=== PATIENT | female | born 1985 | race Caucasian/White ===

== ENCOUNTER → 2017-01-22 | Emergency (ER) | payer OTHER ==
[~2017-01-22] MED LIST: ACETAMINOPHEN 500 MG TABLET (FP) ONE; ACETAMINOPHEN 500 MG TABLET (FP) PO ONE
[2017-01-22 11:26] VITALS: BMI 42.0
--- NOTE | 2017-01-22 12:43 | PDOC ---
History of Present Illness - General Chief Complaint: Pain Stated Complaint: LT LEG PAIN (27 WKS ) Time Seen by Provider: 01/22/17 12:18 History Source: Patient Exam Limitations: No Limitations - History of Present Illness Initial Comments: 01/22/17 17:40 My chief complaint: Left-sided lower back pain with radiation down her left leg getting worse History of present illness: Patient is a 31-year-old female 27 weeks here today complaining of worsening left-sided back pain with radiation down left leg over the last 3 weeks. Patient reports at times she feels as if her left leg belgica. Patient has not taken anything for pain. Patient denies any numbness of her leg or any saddle anesthesia or incontinency. She reports having lower back issues for the last 3 years in the past however has never been this bad. Patient has an estimated due date of 04/09/2017 and her last menstrual cycle was 06/12/2016. Patient is a patient of Dr. Zamudio. Pt. denies any vaginal discharge or urinary symptoms. Occurred: reports: other (3 weeks ) Severity: reports: severe Pain Location: reports: back, upper extremity (left buttock radiates down left posterior legs ) Method of Injury: Yes: unknown Modifying Factors: improves with: None Loss of Consciousness: no loss of consciousness Associated Symptoms (Fall): denies symptoms Past History - Past Medical History Allergies/Adverse Reactions: Allergies Allergy/AdvReac Type Severity Reaction Status Date / Time No Known Allergies Allergy Verified 01/22/17 11:27 Home Medications: Ambulatory Orders Vit #108/Iron/FA [ One Tablet] 1 each PO DAILY 12/16/15 Acetaminophen 1,000 mg PO Q8H PRN #30 capsule MDD 6 01/22/17 Asthma: No Cancer: No Cardiac Disorders: No Diabetes: No HTN: No Seizures: No Thyroid Disease: No - Surgical History Cholecystectomy: Yes - Suicide/Smoking/Psychosocial Hx Smoking History: Never smoked Have you smoked in the past 12 months: No Hx Alcohol Use: No Drug/Substance Use Hx: No Hx Substance Use Treatment: No Review of Systems - Review of Systems Able to Perform ROS?: Yes Constitutional: No: Symptoms Reported HEENTM: No: Symptoms Reported Respiratory: No: Symptoms reported Cardiac (ROS): No: Symptoms Reported ABD/GI: No: Symptoms Reported : No: Symptoms Reported Musculoskeletal: Yes: Back Pain (right buttock radiates down left posterior leg ) Integumentary: No: Symptoms Reported Neurological: No: Symptoms reported *Physical Exam - Vital Signs Last Vital Signs Temp Pulse Resp BP Pulse Ox 98.6 F 122 H 20 130/72 97 01/22/17 11:23 01/22/17 11:23 01/22/17 11:23 01/22/17 11:23 01/22/17 11:23 - Physical Exam General Appearance: Yes: Appropriately Dressed Respiratory/Chest: positive: Lungs Clear, Normal Breath Sounds. negative: Chest Tender, Respiratory Distress Cardiovascular: positive: Regular Rhythm, Regular Rate, S1, S2 Vascular Pulses: Doralis-Pedis (L): 4+ Musculoskeletal: positive: Normal Inspection, Decreased Range of Motion (at waist with flexion ). negative: CVA Tenderness, CVA Tenderness (R), CVA Tenderness (L), Vertebral Tenderness Extremity: positive: Normal Capillary Refill, Normal Inspection, Normal Range of Motion Integumentary: positive: Normal Color Neurologic: positive: Normal Response, Motor Strength 5/5, Respond to painful stimul (b/l legs ), Responsive, Other (left leg + SLR at 40 degrees ). negative : Numbness, Sensory Deficit Deep Tendon Reflexes: Knee (L): 4+, Knee (R): 4+ Medical Decision Making - Medical Decision Making 01/22/17 17:43 Patient is a 31-year-old female 27 weeks here today complaining of worsening left-sided back pain with radiation down left leg over the last 3 weeks. Patient reports at times she feels as if her left leg belgica. Patient has not taken anything for pain. Patient denies any numbness of her leg or any saddle anesthesia or incontinency. She reports having lower back issues for the last 3 years in the past however has never been this bad. Patient has an estimated due date of 04/09/2017 and her last menstrual cycle was 06/12/2016. Patient is a patient of Dr. Zamudio. Pt. denies any vaginal discharge or urinary symptoms. LEFT LOWER BACK PAIN WITH RADICULOPATHY LEFT LEG PLAN: ACETAMINOPHEN 1000 MG PO NOW THAN EVERY 8 HRS PRN PAIN FOLLOW UP WITH ORTHOPEDIST FOR FURTHER EVAL PT. TO GO TO L & D FOR FURTHER EVAL *DC/Admit/Observation/Transfer Diagnosis at time of Disposition: Lumbar back pain with radiculopathy affecting left lower extremity - Discharge Dispostion Disposition: HOME Condition at time of disposition: Stable - Prescriptions Prescriptions: Acetaminophen 1,000 mg PO Q8H PRN #30 capsule MDD 6 PRN Reason: Pain Level 6-10 - Referrals Referrals: Litzy Santillan MD [Primary Care Provider] - Crispin Mondragon MD [Staff Physician] - Jared Garcia MD [Staff Physician] - - Patient Instructions Printed Discharge Instructions: Sciatica (Alternative Therapy), DI for Sciatica Additional Instructions: Avoid any strenuous activities or exercise You must follow up with orthopedist tomorrow for further evaluation Drink at least 10 glasses of water a day to stay well hydrated. Return to the Labor and Delivery unit if the baby is not moving, your water breaks, you have vaginal bleeding or contractions unrelieved with rest and hydration.
[2017-01-22 14:46] VITALS: BP 110/61; PULSE 98; TEMP 98.4
== END | disposition home or self-care (01) ==
LOC: JERFT 11:21
DX: O26.892 Other specified pregnancy related conditions, second trimester (principal)
CPT/HCPCS: 99281-25

== ENCOUNTER 2017-04-08 06:10 | Inpatient (IN) | payer OTHER ==
[~2017-04-08 06:10] MED LIST changes: -ACETAMINOPHEN 500 MG TABLET (FP) ONE; -ACETAMINOPHEN 500 MG TABLET (FP) PO ONE; +CITRIC ACID/SODIUM CITRATE 30 ML UNIT-DOSE CUP PO ONE; +ELECTROLYTE-148 SOLN 500 ML IV ONE
[2017-04-08] MEDS ORDERED: ELECTROLYTE-148 SOLN 500 ML IV ONE (06:40)
[2017-04-08 07:02] VITALS: BMI 42.0
--- NOTE | 2017-04-08 08:15 | HP ---
Past Medical History - Admission Chief Complaint: Elective History of Present Illness: 31 yo @ 39 weeks gestation with previous is pre op for repeat C- Section. She c/o leaking fluid but no contractions pain. History Source: Patient Limitations to Obtaining History: No Limitations - Past Medical History ...: 5 ...Para: 3 ...Term: 3 ...: 0 ...Spon : 1 ...Induced : 0 ...EDC by Sono: 04/15/17 - Past Surgical History Past Surgical History: Yes: Cholecystectomy, Hx Myomectomy: No Hx Transabdominal Cerclage: No - Smoking History Smoking history: Never smoked Have you smoked in the past 12 months: No - Alcohol/Substance Use Hx Alcohol Use: No History of Substance Use: reports: None - Social History Usual Living Arrangement: Yes: With Significant Other History of Recent Travel: No Home Medications - Allergies Allergies/Adverse Reactions: Allergies Allergy/AdvReac Type Severity Reaction Status Date / Time No Known Allergies Allergy Verified 04/08/17 07:03 - Home Medications Home Medications: Ambulatory Orders Vit Calc,Iron,Folic [ Vitamins] 1 each PO DAILY 04/08/17 Family Disease History - Family Disease History Family History: Unremarkable Review of Systems - Review of Systems Constitutional: reports: No Symptoms Eyes: reports: No Symptoms HENT: reports: No Symptoms Neck: reports: No Symptoms Cardiovascular: reports: No Symptoms Respiratory: reports: No Symptoms Gastrointestinal: reports: No Symptoms Genitourinary: reports: Other (Leakage of fluid) Breasts: reports: No Symptoms Reported Musculoskeletal: reports: No Symptoms Integumentary: reports: No Symptoms Neurological: reports: No Symptoms Endocrine: reports: No Symptoms Hematology/Lymphatic: reports: No Symptoms Psychiatric: reports: No Symptoms Pain Intensity: 2 Physical Exam - Maternity Constitutional: Yes: Well Nourished Eyes: Yes: Conjunctiva Clear HENT: Yes: Atraumatic Neck: Yes: Supple Cardiovascular: Yes: Regular Rate and Rhythm Lungs: Clear to auscultation - Abdominal Exam/OB Number of Fetuses: Single Presentation: Vertex Contractions: No - Physical Exam ...Motor Strength: WNL Psychiatric: Yes: Alert, Oriented Problem List - Problems (1) Previous section complicating , antepartum condition or complication Code(s): O34.219 - MATERNAL CARE FOR UNSP TYPE SCAR FROM PREVIOUS DEL Assessment/Plan Previous Pre op for repeat Consent signed Anesthesia to see patient
[2017-04-08] MEDS ORDERED: METHYLERGONOVINE MALEATE 0.2 MG/1 ML AMP IM PRN (10:09)
--- NOTE | 2017-04-08 10:09 | OP ---
Operative Note - Note: Operative Date: 04/08/17 Pre-Operative Diagnosis: Elective Operation: Repeat Low Transverse Findings: Baby girl in ROT position Post-Operative Diagnosis: Same as Pre-op Surgeon: Maribeth Harris Manager Spring: Livan Vázquez Anesthesia: Spinal Specimens Removed: Placenta Estimated Blood Loss (mls): 500
[2017-04-08] MEDS ORDERED: ONDANSETRON 4 MG/2 ML VIAL IVPUSH PRN (10:27)
[2017-04-08] MEDS: OXYTOCIN 20 UNITS in 0.9% NS 20 UNIT/1,000 ML INFUS.BAG IV SCH ×2 (10:40→19:57)
--- NOTE | 2017-04-08 12:14 | SURG ---
Surgery Jewelry Coater Note Jewelry Coater: Livan Vázquez PA-C Date of Service: 04/08/17 Diagnosis: Elective Procedure: Repeat Low Transverse I was present for the entirety of the operative procedure. For further detail, please refer to operative report. Visit type - Case Type Case Type: Scheduled Admission - New patient This patient is new to me today: Yes Date on this admission: 04/08/17
[2017-04-08] MEDS: IBUPROFEN 800 MG/8 ML IJ IVPB PRN (17:50)
[2017-04-08] MEDS: FERROUS SO4 325 MG TABLET (FP) PO SCH (22:09)
[2017-04-09] MEDS: IBUPROFEN 800 MG/8 ML IJ IVPB PRN (00:53)
--- NOTE | 2017-04-09 07:18 | PN ---
Progress Note (SOAP) - Current Medications Current Medications: Active Medications Acetaminophen (Tylenol -) 650 mg PO Q4H PRN PRN Reason: FEVER OR PAIN Bisacodyl (Dulcolax Suppository -) 10 mg RC PRN PRN PRN Reason: CONSTIPATION Diphenhydramine HCl (Benadryl Injection -) 25 mg IVPUSH Q4H PRN PRN Reason: Pruritis Last Admin: 04/09/17 00:53 Dose: 25 mg Ferrous Sulfate (Feosol -) 325 mg PO BID [facility] Last Admin: 04/08/17 22:09 Dose: Not Given Oxytocin/Sodium Chloride (Normal Saline+20 Units Oxytocin -) 20 unit in 1,000 mls @ 125 mls/hr IV ASDIR [facility] Last Admin: 04/08/17 19:57 Dose: 125 mls/hr Ibuprofen (Motrin -) 600 mg PO Q4H PRN PRN Reason: PAIN Ibuprofen (Caldolor Injection -) 800 mg IVPB Q8H PRN PRN Reason: PAIN OR FEVER Last Admin: 04/09/17 00:53 Dose: 800 mg Methylergonovine Maleate (Methergine Injection -) 0.2 mg IM Q4H PRN PRN Reason: Excessive Bleeding (L&D) Ondansetron HCl (Zofran Injection) 4 mg IVPUSH Q4H PRN PRN Reason: NAUSEA Oxycodone HCl (Roxicodone -) 5 mg PO Q4H PRN PRN Reason: PAIN LEVEL 1-5 Multivit/Folic Acid/Iron ( Vitamins (Sjr) -) 1 tab PO DAILY [facility] Simethicone (Mylicon -) 80 mg PO Q4H PRN PRN Reason: GAS - Objective Vital Signs: Vital Signs Temperature 98.7 F 04/09/17 06:00 Pulse Rate 89 04/09/17 06:00 Respiratory Rate 18 04/09/17 06:00 Blood Pressure 108/66 04/09/17 06:00 O2 Sat by Pulse Oximetry (%) 100 04/08/17 11:20 Constitutional: Yes: Well Nourished, No Distress HENT: Yes: WNL Neck: Yes: WNL Cardiovascular: Yes: WNL Respiratory: Yes: WNL, Regular, CTA Bilaterally Gastrointestinal: Yes: WNL ...Rectal Exam: Yes: WNL ....Post : Yes: Uterus firm, Uterus non-tender Breast(s): Yes: WNL Musculoskeletal: Yes: WNL Extremities: Yes: WNL Wound/Incision: Yes: Clean/Dry, Dressing Dry and Intact Neurological: Yes: WNL, Alert, Oriented Assessment/Plan SP POD 1 Section Plan OOB Percocet
[2017-04-09 08:14] LABS: BASOPHIL 0.3 % (0-2.0); EOSINOPHIL 0.9 % (0-4.5); MCH 25.2 pg (25.7-33.7); MCHC 31.7 g/dl (32.0-36.0); MEAN CELL VOLUME 79.4 fl (80-96); PLATELET COUNT 177 K/MM3 (134-434); RDW 16.3 % (11.6-15.6); WHITE BLOOD COUNT 11.1 K/mm3 (4.0-10.0)
[2017-04-09] MEDS: oxyCODONE HCL 5 MG TABLET PO PRN ×4 (09:06→22:59)
[2017-04-09] MEDS: ACETAMINOPHEN 325 MG TABLET (FP) PO PRN ×4 (09:08→22:58)
[2017-04-09] MEDS: PRENATAL VITAMINS W/ FOLIC ACID TABLET (FP) PO SCH (09:09)
[2017-04-09] MEDS: FERROUS SO4 325 MG TABLET (FP) PO SCH ×2 (09:09→21:21)
[2017-04-09] MEDS: SIMETHICONE 80 MG TAB.CHEW (FP) PO PRN ×4 (09:09→22:58)
[2017-04-09] MEDS ORDERED: BISACODYL 10 MG SUPP.RECT RC PRN (10:09)
--- NOTE | 2017-04-09 12:25 | PN ---
Progress Note, Physician Chief Complaint: Pt. ambulating and voiding, pain controlled, no anesthesia complaints. - Current Medication List Current Medications: Active Medications Acetaminophen (Tylenol -) 650 mg PO Q4H PRN PRN Reason: FEVER OR PAIN Last Admin: 04/09/17 09:08 Dose: 650 mg Bisacodyl (Dulcolax Suppository -) 10 mg RC PRN PRN PRN Reason: CONSTIPATION Diphenhydramine HCl (Benadryl Injection -) 25 mg IVPUSH Q4H PRN PRN Reason: Pruritis Last Admin: 04/09/17 00:53 Dose: 25 mg Ferrous Sulfate (Feosol -) 325 mg PO BID [facility] Last Admin: 04/09/17 09:09 Dose: 325 mg Oxytocin/Sodium Chloride (Normal Saline+20 Units Oxytocin -) 20 unit in 1,000 mls @ 125 mls/hr IV ASDIR [facility] Last Admin: 04/08/17 19:57 Dose: 125 mls/hr Ibuprofen (Motrin -) 600 mg PO Q4H PRN PRN Reason: PAIN Ibuprofen (Caldolor Injection -) 800 mg IVPB Q8H PRN PRN Reason: PAIN OR FEVER Last Admin: 04/09/17 00:53 Dose: 800 mg Methylergonovine Maleate (Methergine Injection -) 0.2 mg IM Q4H PRN PRN Reason: Excessive Bleeding (L&D) Ondansetron HCl (Zofran Injection) 4 mg IVPUSH Q4H PRN PRN Reason: NAUSEA Oxycodone HCl (Roxicodone -) 5 mg PO Q4H PRN PRN Reason: PAIN LEVEL 1-5 Last Admin: 04/09/17 09:06 Dose: 5 mg Multivit/Folic Acid/Iron ( Vitamins (Sjr) -) 1 tab PO DAILY [facility] Last Admin: 04/09/17 09:09 Dose: 1 tab Simethicone (Mylicon -) 80 mg PO Q4H PRN PRN Reason: GAS Last Admin: 04/09/17 09:09 Dose: 80 mg - Objective Vital Signs: Vital Signs Temperature 98.8 F 04/09/17 07:30 Pulse Rate 85 04/09/17 07:30 Respiratory Rate 18 04/09/17 08:00 Blood Pressure 106/61 04/09/17 07:30 O2 Sat by Pulse Oximetry (%) 100 04/08/17 11:20 Constitutional: Yes: Well Nourished, No Distress, Calm Musculoskeletal: Yes: WNL Neurological: Yes: WNL, Alert, Oriented ...Motor Strength: WNL Labs: CBC, BMP 04/09/17 07:45 Assessment/Plan POD#1 s/p repeat under spinal with duramorph. Doing well. D/C from anesthesia care.
[2017-04-09] MEDS: IBUPROFEN 600 MG TABLET (FP) PO PRN (22:58)
[2017-04-10] MEDS: IBUPROFEN 600 MG TABLET (FP) PO PRN ×2 (06:44→21:48)
[2017-04-10] MEDS: oxyCODONE HCL 5 MG TABLET PO PRN ×4 (06:45→21:48)
[2017-04-10] MEDS: ACETAMINOPHEN 325 MG TABLET (FP) PO PRN ×3 (06:45→17:33)
[2017-04-10] MEDS: FERROUS SO4 325 MG TABLET (FP) PO SCH ×2 (09:12→21:48)
[2017-04-10] MEDS: PRENATAL VITAMINS W/ FOLIC ACID TABLET (FP) PO SCH (09:12)
--- NOTE | 2017-04-10 09:17 | OP ---
DATE OF OPERATION: 04/08/2017 PREOPERATIVE DIAGNOSIS: Previous section, at 39 weeks. POSTOPERATIVE DIAGNOSIS: Previous section, at 39 weeks. PROCEDURE: Repeat low transverse section. SURGEON: Maribeth Harris MD VOCAL ARTIST: OSMAR Jerry ANESTHESIA: Spinal. COMPLICATIONS: None. ESTIMATED BLOOD LOSS: 600 Ml DESCRIPTION OF PROCEDURE: Patient was taken to the operating room where spinal anesthesia was administered. Patient was then prepped and draped in proper sterile fashion. A Pfannenstiel skin incision was made and carried down to the underlying layer of fascia. The fascia was incised in the midline and extended laterally. The superior aspect of the fascial incision was then grasped with a Tam clamp, elevated, and the rectus muscle dissected off bluntly. Attention was then turned to the inferior aspect of the fascial incision, which in a similar fashion, was then grasped with a Tam clamp, elevated, and the rectus muscle was dissected off bluntly. The rectus muscle was in the midline. The peritoneum identified and entered sharply with the Metzenbaum scissors. The peritoneal incision was then extended superiorly and inferiorly with good visualization of the bladder. The vesicouterine peritoneum was then grasped with a pickup and entered sharply with the Metzenbaum scissors. This incision was extended laterally and a bladder flap created digitally. Then, the lower uterine segment was then incised using a 10 blade. This incision was extended laterally and the head delivered atraumatically. Nose and mouth were suctioned and the cord clamped and cut. The was handed to the waiting foundry engineer, and the placenta was removed manually. The uterus exteriorized and cleared of all clots and debris. Then, the uterine incision was repaired using 0 Biosyn in a running locked fashion. A second layer of the same suture was used as a means to provide excellent hemostasis. Then, the pelvis was then completely irrigated. The uterus was returned to the abdomen. Then, the peritoneum was closed using 2-0 Biosyn, the fascia was reapproximated using 0 Vicryl in a running fashion, and the skin was closed in a subcuticular fashion using 3-0 Vicryl. Patient tolerated the procedure well. Patient was then taken to PACU in stable condition. PATHOLOGY: Placenta. Ria COCHRAN/[id number]
--- NOTE | 2017-04-10 11:13 | PN ---
Post Progress Note - Subjective Subjective: Pt seen/evaluated and doing well. Pain controlled. Tolerating diet. Ambulating, voiding, passing flatus. No complaints. Type of Delivery: Repeat C/S Vital Signs: Vital Signs Temperature 97.5 F L 04/09/17 22:00 Pulse Rate 91 H 04/09/17 22:00 Respiratory Rate 18 04/09/17 22:00 Blood Pressure 125/60 04/09/17 22:00 O2 Sat by Pulse Oximetry (%) 100 04/08/17 11:20 Uterus: No: Fundus Firm Abdomen/GI: Yes: Abdomen soft, Passing flatus, Tolerating PO. No: Abdominal Distention, Tender Lochia: Yes: Rubra Lochia, amount: Small Extremities: Yes: Calves non-tender. No: Edema Perineum: Yes: Intact Activity: Ambulating - Labs Labs: CBC WBC 11.1 K/mm3 (4.0-10.0) H 04/09/17 07:45 RBC 3.71 M/mm3 (3.60-5.2) 04/09/17 07:45 Hgb 9.3 GM/dL (10.7-15.3) L D 04/09/17 07:45 Hct 29.5 % (32.4-45.2) L 04/09/17 07:45 MCV 79.4 fl (80-96) L 04/09/17 07:45 MCH 25.2 pg (25.7-33.7) L 04/09/17 07:45 MCHC 31.7 g/dl (32.0-36.0) L 04/09/17 07:45 RDW 16.3 % (11.6-15.6) H 04/09/17 07:45 Plt Count 177 K/MM3 (134-434) D 04/09/17 07:45 MPV 10.0 fl (7.5-11.1) 04/09/17 07:45 Neutrophils % 79.0 % (42.8-82.8) 04/09/17 07:45 Lymphocytes % 13.2 % (8-40) D 04/09/17 07:45 Monocytes % 6.6 % (3.8-10.2) 04/09/17 07:45 Eosinophils % 0.9 % (0-4.5) D 04/09/17 07:45 Basophils % 0.3 % (0-2.0) 04/09/17 07:45 Problem List - Problems (1) delivery delivered Code(s): O82 - ENCOUNTER FOR DELIVERY WITHOUT INDICATION (2) Anemia Code(s): D64.9 - ANEMIA, UNSPECIFIED Assessment/Plan 31 y/o POD#2 s/p repeat delivery - AFVSS - Hgb 9.3 - pt stable, asymptomatic, will continue vitamins - regular diet, PO pain meds, routine care - likely stable for discharge home tomorrow
[2017-04-10] MEDS: SIMETHICONE 80 MG TAB.CHEW (FP) PO PRN ×3 (13:26→21:48)
[2017-04-11] MEDS: oxyCODONE HCL 5 MG TABLET PO PRN ×2 (03:53→07:39)
[2017-04-11] MEDS: IBUPROFEN 600 MG TABLET (FP) PO PRN ×3 (03:53→16:05)
[2017-04-11] MEDS: SIMETHICONE 80 MG TAB.CHEW (FP) PO PRN ×3 (03:54→16:05)
[2017-04-11 09:06] LABS: BASOPHIL 0.6 % (0-2.0); EOSINOPHIL 2.9 % (0-4.5); MCH 25.6 pg (25.7-33.7); MCHC 32.3 g/dl (32.0-36.0); MEAN CELL VOLUME 79.2 fl (80-96); MEAN PLT VOLUME 9.9 fl (7.5-11.1); NEUTROPHILS 67.1 % (42.8-82.8); PLATELET COUNT 224 K/MM3 (134-434); RDW 16.7 % (11.6-15.6); WHITE BLOOD COUNT 8.7 K/mm3 (4.0-10.0)
--- NOTE | 2017-04-11 09:49 | PN ---
Progress Note (SOAP) - Subjective Chief Complaint: Pt desires to go hoome after 5 pm today + flatus no pain - Current Medications Current Medications: Active Medications Acetaminophen (Tylenol -) 650 mg PO Q4H PRN PRN Reason: FEVER OR PAIN Last Admin: 04/10/17 17:33 Dose: 650 mg Bisacodyl (Dulcolax Suppository -) 10 mg RC PRN PRN PRN Reason: CONSTIPATION Ferrous Sulfate (Feosol -) 325 mg PO BID [facility] Last Admin: 04/10/17 21:48 Dose: 325 mg Ibuprofen (Motrin -) 600 mg PO Q4H PRN PRN Reason: PAIN Last Admin: 04/11/17 07:40 Dose: 600 mg Methylergonovine Maleate (Methergine Injection -) 0.2 mg IM Q4H PRN PRN Reason: Excessive Bleeding (L&D) Oxycodone HCl (Roxicodone -) 5 mg PO Q4H PRN PRN Reason: PAIN LEVEL 1-5 Last Admin: 04/11/17 07:39 Dose: 5 mg Multivit/Folic Acid/Iron ( Vitamins (Sjr) -) 1 tab PO DAILY [facility] Last Admin: 04/10/17 09:12 Dose: 1 tab Simethicone (Mylicon -) 80 mg PO Q4H PRN PRN Reason: GAS Last Admin: 04/11/17 07:40 Dose: 80 mg - Objective Vital Signs: Vital Signs Temperature 98 F 04/11/17 07:46 Pulse Rate 79 04/11/17 07:46 Respiratory Rate 20 04/11/17 07:46 Blood Pressure 136/82 04/11/17 07:46 O2 Sat by Pulse Oximetry (%) 100 04/08/17 11:20 Constitutional: Yes: Well Nourished, No Distress, Obese Gastrointestinal: Yes: WNL, Soft, Abdomen, Obese ....Post : Yes: Uterus firm, Uterus non-tender Musculoskeletal: Yes: WNL Extremities: Yes: WNL Wound/Incision: Yes: Clean/Dry, Well Approximated Neurological: Yes: WNL, Alert, Oriented Labs Lab Results: CBC, BMP 04/11/17 08:55 Assessment/Plan SP POD 3 Section Plan OOB Percocet DC home today
[2017-04-11] MEDS: FERROUS SO4 325 MG TABLET (FP) PO SCH (09:51)
[2017-04-11] MEDS: PRENATAL VITAMINS W/ FOLIC ACID TABLET (FP) PO SCH (09:52)
[2017-04-11 11:31] VITALS: BP 123/75; PULSE 92; TEMP 98.2
[2017-04-11] MEDS: ACETAMINOPHEN 325 MG TABLET (FP) PO PRN (16:03)
--- NOTE | 2017-04-16 13:54 | PATH ---
Surgical Pathology Report Patient Name: NAVI ISBELL Med. Rec. #: [id number] /Age/Gender: 1985 (Age: 31) / F Account: [id number] Location: [facility] OBS/INSURANCE SALES REPRESENTATIVE Taken: 04/08/2017 Received: 04/09/2017 Reported: 04/16/2017 Physicians: Maribeth Harris M.D. Specimen(s) Received PLACENTA Clinical History , 39 weeks x1, x2 Final Diagnosis PLACENTA, DELIVERY: FOCALLY DISRUPTED THIRD TRIMESTER PLACENTA WITH INTERVILLOUS FIBRIN DEPOSITION, THREE VESSEL UMBILICAL CORD AND UNREMARKABLE PLACENTAL MEMBRANES. Electronically Signed Isreal Salamanca M.D. Gross Description The specimen is received fresh labeled placenta and is a 492 gram, 15.5 x 14.0 x 3.2 cm. placenta with attached membranes and umbilical cord. The attached membranes are dowell, thick, cloudy and insert marginally. The umbilical cord measures 38 cm. in length and averages 1.2 cm. in diameter. The cord inserts eccentrically, 2.5 cm. to the nearest margin. No true knots or strictures are identified. Cut surface of the umbilical cord reveals 3 vessels. The surface is martell blue with moderate fibrin deposition and appropriate caliber vessels. The maternal surface is red-brown with focal defects. Sectioning reveals red-brown, spongy parenchyma. No lesions are identified. Lead Nuclear Medicine Technologist sections are submitted in three cassettes as follows: 1- membrane rolls and umbilical cord; 2-3- full thickness sections of placenta. 04/14/201704/14/2017
== END 2017-04-11 17:15 | disposition home or self-care (01) | DRG 540 ==
LOC: JLDR 06:10 → J3W 11:44
PROVIDERS: ADMIT Obstetrics & Gynecology; ATTEND Obstetrics & Gynecology
PROC: 10D00Z1 Extraction of Products of Conception, Low, Open Approach (ICD-10-PCS; principal; 2017-04-08)
DX: O34.219 Maternal care for unspecified type scar from previous cesarean delivery (principal); O99.214 Obesity complicating childbirth; O90.81 Anemia of the puerperium; E66.01 Morbid (severe) obesity due to excess calories; Z68.41 Body mass index [BMI] 40.0-44.9, adult; Z3A.39 39 weeks gestation of pregnancy; Z37.0 Single live birth
CPT/HCPCS: 36415; 85025; 88307-TC

== ENCOUNTER 2024-07-01 07:06 | Day surgery (SDC) | payer OTHER ==
[2024-06-30 08:28] VITALS: BMI 25.0
[2024-07-01 11:48] VITALS: PULSE 72; TEMP 97
[2024-07-01] MEDS: LIDOCAINE HCL 1% PRESERVATIVE FREE - 30ML VIAL EP ONE (13:12)
[2024-07-01] MEDS: IOHEXOL 180 MG/1 ML ML IT ONE (13:13)
[2024-07-01] MEDS: DEXAMETHASONE SOD PHOSPHATE 10 MG/1 ML VIAL IM ONE (13:16)
[2024-07-01] MEDS: ACETAMINOPHEN 500 MG TABLET (FP) PO PRN (13:39)
[2024-07-01 13:43] VITALS: BP 110/69; RESP 18
== END 2024-07-01 13:51 | disposition home or self-care (01) ==
LOC: JASU-SURG 07:06
PROVIDERS: ATTEND Pain Medicine Pain Medicine
PROC: 3E0R3BZ Introduction of Anesthetic Agent into Spinal Canal, Percutaneous Approach (ICD-10-PCS; 2024-07-01)
PROC: 3E0R33Z Introduction of Anti-inflammatory into Spinal Canal, Percutaneous Approach (ICD-10-PCS; principal; 2024-07-01 13:05)
DX: M54.16 Radiculopathy, lumbar region (principal)
CPT/HCPCS: 76000-TC-FY; J1100

== ENCOUNTER 2024-07-29 06:59 | Day surgery (SDC) | payer OTHER ==
[2024-07-26 13:12] VITALS: BMI 26.6
[2024-07-29] MEDS ORDERED: LIDOCAINE HCL/PF 1% SDV 5ML VIAL ONE (07:08)
[2024-07-29] MEDS ORDERED: BUPIVACAINE HCL/PF 0.5% (5MG/ML) 10 ML VIAL ONE (07:08)
[2024-07-29 10:38] VITALS: BP 117/70; PULSE 78; RESP 16; TEMP 97.6
[2024-07-29] MEDS ORDERED: ACETAMINOPHEN 500 MG TABLET (FP) PO PRN (12:28)
== END 2024-07-29 11:01 | disposition home or self-care (01) ==
LOC: JASU-SURG 06:59
PROVIDERS: ATTEND Pain Medicine Pain Medicine
PROC: 3E0U3BZ Introduction of Anesthetic Agent into Joints, Percutaneous Approach (ICD-10-PCS; 2024-07-29)
PROC: 3E0U33Z Introduction of Anti-inflammatory into Joints, Percutaneous Approach (ICD-10-PCS; principal; 2024-07-29 10:20)
DX: M53.3 Sacrococcygeal disorders, not elsewhere classified (principal)
CPT/HCPCS: 76000-TC-FY; 81025